=== PATIENT | male | born 1960 | race Caucasian/White ===

== ENCOUNTER → 2021-11-28 14:39 | Outpatient (BNVA) | payer OTHER, SELFPAY | PROVIDERS: PCP Family Medicine; Referring Provider Nurse Practitioner Family; Visit Provider Urology | DX: N40.1 Benign prostatic hyperplasia with lower urinary tract symptoms (principal) | CPT/HCPCS: 81003 ==

== ENCOUNTER 2022-09-12 07:28 | Outpatient (CLI) | payer OTHER, SELFPAY ==
--- NOTE | 2022-09-12 | CT_ITS ---
WS: [id number] LDCT LUNG CANCER SCREENING HISTORY: NICOTINE DEPENDENCE TECHNIQUE: Axial imaging performed from the apices to 1 cm below the costophrenic angles. Coronal and sagittal reformats are submitted with axial MIP series. All CT scans at [facility] use at least one of these dose optimization techniques: automated exposure control; mA and/or kV adjustment per patient size (includes targeted exams where dose is matched to clinical indication); or iterativ e reconstruction. DLP: 87.69 mGy.cm DIvol: Mean CTDIvol: 1.60 (mGy) COMPARISON: 08/05/2021 Diagnostic quality: Satisfactory Lung Nodules: LEFT apical 4 mm nodule similar to 08/05/2021. There are additional bilateral fibrotic changes at the apices. Very small bilateral upper lobe nodules are stable. Benign granuloma LEFT lowe r lobe. There is a new area of endobronchial thickening involving the RIGHT posterior lateral trachea just proximal to the bifurcation. No mixing of air. Most likely bronchial secretions. This should be further evaluated. Nodule measures 8 x 3 mm. Lungs: Hyperexpanded lungs. Mosaic attenuation particularly in the lower lungs bilaterally. Heart: Normal size heart. No pericardial effusion. Other findings: Benign mediastinal and hilar lymph nodes. Some of these are calcified. Prior cholecys tectomy. No adrenal mass. Slight increase in thoracic kyphosis. Mild anterior wedging of T8. CT/CT lung screening [id number] IMPRESSION: LUNG-RADS: 4A-Probably Suspicious FOLLOW UP: 3 Month LDCT OTHER FINDINGS (S MODIFIER): None. 3 month low-dose CT follow-up is to reevaluate the endobronchial nodule.
== END 2022-09-12 07:29 | disposition home or self-care (01) ==
LOC: RAD 07:31
PROVIDERS: PCP Family Medicine; Visit Provider Nurse Practitioner Family
DX: Z12.2 Encounter for screening for malignant neoplasm of respiratory organs (principal); F17.210 Nicotine dependence, cigarettes, uncomplicated
CPT/HCPCS: 71271

== ENCOUNTER → 2024-09-25 11:49 | Outpatient (BNVA) | payer MEDICARE, SELFPAY | PROVIDERS: PCP Family Medicine; Visit Provider Podiatrist Foot & Ankle Surgery | DX: S82.52XA Displaced fracture of medial malleolus of left tibia, initial encounter for closed fracture (principal); W20.8XXA Other cause of strike by thrown, projected or falling object, initial encounter | CPT/HCPCS: 99203 ==